=== PATIENT | female | born 1970 | race Caucasian/White ===

== ENCOUNTER 2022-02-14 12:12 | Observation (INO) | payer MEDICAID, SELFPAY ==
[2022-02-14] VITALS (61 sets, daily range): BP systolic 113–174; BP diastolic 65–99; PULSE 81–117; RESP 0–38; TEMP 36.6–36.8; O2SAT 73–98; BMI 17.9
--- NOTE | 2022-02-14 12:16 | ECG_ITS ---
[facility] Test Date: 2022-02-14 Pat Name: Kelli Lu Department: Room: Gender: Female Creative Arts Music Therapist: : 1970 Requested By: Tracey Paredes Order Number: [id number] Ronquillo MD: Jayla Swenson M.D. Measurements Intervals [place] Rate: 112 P: 81 [place]: 108 QRS: 91 QRSD: 73 T: 74 QT: 313 QTc: 429 Interpretive Statements SINUS TACHYCARDIA WITH SHORT TX INTERVAL POSSIBLE LEFT ATRIAL ENLARGEMENT [-0.1mV P-WAVE IN V1/V2] BORDERLINE RIGHT AXIS DEVIATION [QRS AXIS > 90] No previous ECG available for comparison Electronically Signed On 02-14-2022 16:19:57 CDT by Jayla Swenson M.D. [email or web address] [email or web address] Self St[email or web address].[email or web address]/store/[id number]
--- NOTE | 2022-02-14 12:20 | XR_ITS ---
WS: [id number] Exam: XR chest 1V portable [id number] Date/Time of Exam: 02/14/2022 1:01 PM Reason For Exam: chest tightness No priors. The lungs are hyperinflated and clear. Heart size top limits normal for technique. No pleural effusio ns. The mediastinal silhouette is unremarkable. Bony structures are intact. Monitoring leads superimp ose the chest. XR/XR chest 1V portable [id number] IMPRESSION: 1. Pulmonary hyperinflation which might indicate obstructive lung disease. No a cute process.
[2022-02-14 12:27] LABS: Basophils # 0.1 10^3/uL (0.0-0.1); Basophils % 0.6 %; Eosinophils # 0.1 10^3/uL (0.0-0.8); Eosinophils % 0.5 %; Hematocrit 51.2 % (37.0-47.0); Hemoglobin 16.9 g/dL (11.5-15.3); Lymphocytes # 2.3 10^3/uL (0.8-4.8); Lymphocytes % 25.1 %; Mean Corpuscular Hemoglobin 32.8 pg (28.0-34.0); Mean Corpuscular Volume 99.4 fl (81-99); Mean Platelet Volume 10.2 fL (7.4-10.4); Monocytes # 0.7 10^3/uL (0.2-0.9); Neutrophils % 66.7 %; Nucleated Red Blood Cells % 0 %; Platelet Count 232 10^3/cmm (130-400); Red Blood Count 5.15 10^6/uL (4.1-5.3); Red Cell Distribution Width 14.1 % (12.1-15.1); White Blood Count 9.3 10^3/uL (4.0-10.0)
--- NOTE | 2022-02-14 12:27 | W.ED.GENADLT ---
HPI - General Adult General: Chief complaint: Shortness of Breath/Dyspnea Stated complaint: Chest pain/SOB Time Seen by Provider: 02/14/22 12:20 History of Present Illness: Patient is a 51-year-old female with a history of COPD presenting to the emergency room for evaluation of palpitation and chest pressure. Patient tells me that she has been having on and off chest pressure for the last few weeks. In addition, patient has intermittent palpitations throughout the day. Earlier today, patient was seen and evaluated at her primary care's office. Patient had an EKG which was read by the machine as a STEMI. Patient was then told to come to the emergency room. On arrival, the EKG was reviewed did not have any reciprocal changes and does not meet criteria for STEMI. Repeat EKG did not have the abnormal machine reading. Onset: 3 days ago Duration:3 days Location:home Severity:moderate Associated symptoms: Deny chest pain, dyspnea, nausea, rash, palpitations or vomiting Review of Systems Const: Denies: fever(s) or chills Eyes: Denies: change in vision ENMT: Denies: mouth pain Card: Denies: chest pain or palpitations Resp: Denies: dyspnea or non-productive cough GI: Denies: abdominal pain, nausea, vomiting or diarrhea : Denies: dysuria Musc: Denies: extremity pain Skin/Breast: Denies: rash or new lesions Neuro: Denies: weakness in extremities Psych: Reports: other (Normal mood) Hiram/Lymph: Denies: easy bruising PFSH ED PFSH: Medical History COPD (chronic obstructive pulmonary disease) Social History Smoking and tobacco status: current every day smoker Second hand smoke exposure: Yes Lives independently: Yes Household members: spouse Physical Exam Const: COMMON NORMALS: alert HENMT: COMMON NORMALS: atraumatic HEAD & SCALP: atraumatic MOUTH: moist mucous membranes not abnormal Eye: COMMON NORMALS: EOMs intact bilaterally and conjunctivae normal CONJUNCTIVA: Yes conjunctivae normal Neck/C-Spine: COMMON NORMALS: full ROM and supple Resp: COMMON NORMALS: normal respiratory effort and clear to auscultation bilaterally AUSCULTATION: clear to auscultation bilaterally Cardio: COMMON NORMALS: regular rate RATE: regular rate GI: COMMON NORMALS: Soft to palpation and non-tender PALPATION: Yes Soft to palpation Extremity: COMMON NORMALS: full ROM Neuro: SENSORIUM/ORIENTATION: Yes alert MOTOR EXAM: No Abnormal motor strength present and Other motor observations present (no focal motor deficits) Psych: COMMON NORMALS: speech normal SPEECH: Yes normal speech MOOD & AFFECT: Yes euthymic mood Course Vital Signs: Vital signs: Vital Signs Temperature 98.0 F 02/14/22 12:16 Pulse Rate 84 02/14/22 14:34 Respiratory Rate 22 H 02/14/22 14:34 Blood Pressure 138/90 02/14/22 14:48 Pulse Oximetry 98 02/14/22 14:48 Oxygen Delivery Me thod 02/14/22 14:48 Oxygen Flow Rate 3 02/14/22 14:48 MDM - General Adult Medical Decision Making Patient is a 51-year-old female with a history of COPD presenting to the emergency room for evaluation of palpitation and chest pressure. On physical exam, patient was noted to be satting at 85 to 87% on room air. Patient requests 3 L oxygen. Patient previously did not have any oxygen requirement. No lower extremity swelling. No other focal findings on physical exam. Lungs appear to be clear. Her chest appears to be unremarkable. Dimer within normal limit. The present time, it is unclear why patient requires new oxygen. Patient is COVID-negative. Patient is rhinovirus positive. Will admit patient for observation and treatment for COPD. Patient received DuoNeb and steroids in the ED. Disposition: admission Lab Data : 02/14/22 12:22 02/14/22 13:24 Radiology Impressions Chest X-Ray 02/14/22 12:20 IMPRESSION: 1. Pulmonary hyperinflation which might indicate obstructive lung disease. No acute process. Laboratory Results WBC 9.3 10^3/uL (4.0-10.0) 02/14/22 12:22 RBC 5.15 10^6/uL (4.1-5.3) 02/14/22 12:22 Hgb 16.9 g/dL (11.5-15.3) H 02/14/22 12:22 Hct 51.2 % (37.0-47.0) H 02/14/22 12:22 MCV 99.4 fl (81-99) H 02/14/22 12: MCH 32.8 pg (28.0-34.0) 02/14/22 12: MCHC 33.0 g/dL (30.0-36.0) 02/14/22 12: RDW 14.1 % (12.1-15.1) 02/14/22 12: Plt Count 232 10^3/cmm (130-400) 02/14/22 12: MPV 10.2 fL (7.4-10.4) 02/14/22 12: Neut % (Auto) 66.7 % 02/14/22 12: Lymph % (Auto) 25.1 % 02/14/22 12: [place] % (Auto) 7.0 % 02/14/22 12: Eos % (Auto) 0.5 % 02/14/22 12: Baso % (Auto) 0.6 % 02/14/22 12: Neut # (Auto) 6.20 10^3/uL (1.8-7.7) 02/14/22 12: Lymph # (Auto) 2.3 10^3/uL (0.8-4.8) 02/14/22 12: [place] # (Auto) 0.7 10^3/uL (0.2-0.9) 02/14/22 12: Eos # (Auto) 0.1 10^3/uL (0.0-0.8) 02/14/22 12: Baso # (Auto) 0.1 10^3/uL (0.0-0.1) 02/14/22: Nucleated RBC % (auto) 0 % 02/14/22 12: Nucleated RBCs # 0.0 /100WBC 02/14/22 12:22 D-Dimer 0.31 ug/mIFEU (0-0.59) 02/14/22 12:22 Specimen Type Arterial 02/14/22 15:00 Sample Site Rad, left 02/14/22 15:00 ABG pH 7.42 (7.35-7.45) 02/14/22 15:00 ABG pCO2 50.0 mmHg (35-45) H 02/14/22 15:00 ABG pO2 47.5 mmHg (80.0-100.0) L 02/14/22 15:00 ABG HCO3 32.3 mmol/L (22-26) H 02/14/22 15:00 ABG O2 Saturation 86.9 02/14/22 15:00 ABG Base Excess 6.3 mmol/L (-2.0-2.0) H 02/14/22 15:00 Guido Test Pos 02/14/22 15:00 A-a O2 Gradient 40.8 mmHg (5-10) H 02/14/22 15:00 Hematocrit 46.5 % (37-47) 02/14/22 15:00 Hgb O2 Saturation 78.5 % (95-100) L 02/14/22 15:00 Carboxyhemoglobin 9.0 %THgb (0.4-20.1) 02/14/22 15:00 Methemoglobin 0.7 % (0.4-1.5) 02/14/22 15:00 Total Hemoglobin 15.5 g/dL (12-16) 02/14/22 15:00 Sodium 138.0 mmol/L (131-143) 02/14/22 15:00 Potassium 3.9 mmol/L (3.5-5.0) 02/14/22 15:00 Glucose 93.0 mg/dL (70-115) 02/14/22 15:00 Ionized Calcium 1.2 mmol/L (1.1-1.4) 02/14/22 15:00 O2 Delivery Device Room air 02/14/22 15:00 FiO2 21.0 % 02/14/22 15:00 Specimen Drawn By Renny 02/14/22 15:00 Software Developer ID Renny 02/14/22 15:00 Sodium 136 mmol/L (136-145) 02/14/22 13:24 Potassium 4.4 mmol/L (3.5-5.1) 02/14/22 13:24 Chloride 99 mmol/L (98-107) 02/14/22 13:24 Carbon Dioxide 29 mmol/L (22-29) 02/14/22 13:24 Anion Gap 12.4 (5-19) 02/14/22 13:24 BUN 9 mg/dL (6-20) 02/14/22 13:24 Creatinine 0.4 mg/dL (0.5-0.9) L 02/14/22 13:24 GFR Calculation 167.6 mL/min (90-130) H 02/14/22 13:24 Glucose 80 mg/dL (65-115) 02/14/22 13:24 Calculated Osmolality 280 mOsm/kg (285-295) L 02/14/22 13:24 Calcium 8.7 mg/dL (8.5-10.5) 02/14/22 13:24 Troponin T Baseline 9 ng/L (0-10) 02/14/22 12:22 Troponin T 120 Minute 9.42 ng/L (0-10) 02/14/22 14:40 Delta Troponin T 0.42 ABS# (0-10) 02/14/22 14:40 NT-Pro-B Natriuret Pep 698 pg/mL (0-125) H 02/14/22 13:24 Coronavirus 229E (PCR) Not detected (NOT DETECT) 02/14/22 12:30 Human Metapneumovir PCR Not detected (NOT DETECT) 02/14/22 14:30 Entero/Rhino (PCR) Detected (NOT DETECT) A 02/14/22 14:30 SARS-CoV-2 (PCR) Not detected (NOT DETECT) 02/14/22 12:30 Imaging Data Other Imaging: Radiologist's impression: [address] [address] XRay Report Signed Patient: Kelli Lu Unit #: [id number] : 1970 Age/Sex: 51 / F ADM Date: 02/14/22 Loc: ER Room/Bed: Attending Dr: Ordering Provider/Ordering MD: Tracey Paredes MD Date of Service: 02/14/22 Procedure(s): XR chest 1V portable [id number] Accession Number(s): [id number] Report Number: [id number] WS: [id number] Exam: XR chest 1V portable [id number] Date/Time of Exam: 02/14/2022 1:01 PM Reason For Exam: chest tightness No priors. The lungs are hyperinflated and clear. Heart size top limits normal for technique. No pleural effusions. The mediastinal silhouette is unremarkable. Bony structures are intact. Monitoring leads superimpose the chest. XR/XR chest 1V portable [id number] IMPRESSION: 1. Pulmonary hyperinflation which might indicate obstructive lung disease. No acute process. ? Dictated By: Crescencio Everett DO Signed By: Crescencio Everett DO Signed Date/Time: 02/14/221317 DD/ 16 Discharge Plan Discharge Patient Disposition: Admitted As Inpatient Clinical Impression: Palpitations, Hypoxemia, COPD exacerbation Condition: Stable Discharge Diet: Advance as tolerated Discharge Activity: Increase activity as tolerated Coding Level of Care Code ED County Program Technician for Chg Fwd Exam Comprehensive
[2022-02-14 12:41] LABS: Slide Review Slide Review Perform
[2022-02-14 13:05] LABS: D Dimer 0.31 ug/mIFEU (0-0.59)
[2022-02-14] MEDS: ipratropium-albuterol 3 mL Neb INHALATION ×2 (13:09→21:01)
[2022-02-14 13:12] LABS: Troponin(5th) Baseline 9 ng/L (0-10)
[2022-02-14 14:09] LABS: Chloride 99 mmol/L (98-107)
[2022-02-14 14:20] LABS: NT Pro B Type Natriuretic Pept 698 pg/mL (0-125)
--- NOTE | 2022-02-14 14:21 | ECG_ITS ---
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 Measurements Intervals [place] Rate: 80 P: 80 [place]: 138 QRS: 90 QRSD: 77 T: 73 QT: 384 QTc: 445 Interpretive Statements SINUS RHYTHM WITH OCCASIONAL SUPRAVENTRICULAR PREMATURE COMPLEXES Compared to ECG 02/14/2022 12:21:04 Sinus tachycardia no longer present Short [place] interval no longer present Electronically Signed On 02-14-2022 16:27:15 CDT by Jayla Swenson M.D. [id number]
[2022-02-14 14:28] LABS: Adenovirus Not Detected (NOT DETECT); Chlamydia Pneumoniae Not Detected (NOT DETECT); Coronavirus 229E,HKU1,NL63,OC4 Not Detected (NOT DETECT); Human Metapneumovirus Not Detected (NOT DETECT); Human Rhinovirus/Enterovirus Detected (NOT DETECT); Influenza A Not Detected (NOT DETECT); Influenza A H1 Not Detected (NOT DETECT); Influenza A H1-2009 Not Detected (NOT DETECT); Influenza A H3 Not Detected (NOT DETECT); Influenza B Not Detected (NOT DETECT); Mycoplasma Pneumoniae Not Detected (NOT DETECT); Parainfluenza Virus Type 1 Not Detected (NOT DETECT); Parainfluenza Virus Type 2 Not Detected (NOT DETECT); Parainfluenza Virus Type 3 Not Detected (NOT DETECT); Parainfluenza Virus Type 4 Not Detected (NOT DETECT); Respiratory Syncytial Virus A Not Detected (NOT DETECT); Respiratory Syncytial Virus B Not Detected (NOT DETECT); SARS-COV-2 Not Detected (NOT DETECT)
[2022-02-14 14:29] LABS: Blood Urea Nitrogen 9 mg/dL (6-20); Calcium 8.7 mg/dL (8.5-10.5); Carbon Dioxide 29 mmol/L (22-29); Glomerular Filtration Rate 167.6 mL/min (90-130); Glucose 80 mg/dL (65-115); Osmolality Calculated 280 mOsm/kg (285-295); Sodium 136 mmol/L (136-145)
[2022-02-14 14:30] LABS: Human Metapneumovirus Not Detected (NOT DETECT); Human Rhinovirus/Enterovirus Detected (NOT DETECT); Results from Genmark
[2022-02-14 14:30] LABS: Anion Gap 12.4 (5-19); Potassium 4.4 mmol/L (3.5-5.1)
[2022-02-14 15:17] LABS: ABG PH Result 7.42 (7.35-7.45); HCO3 ABG 32.3 mmol/L (22-26); PO2 ABG 47.5 mmHg (80.0-100.0)
[2022-02-14 15:18] LABS: Base Excess ABG 6.3 mmol/L (-2.0-2.0); Oxygen Saturation ABG 86.9
[2022-02-14 15:19] LABS: Blood Gas Operator Identificat MONRO; Potassium Level - ABG 3.9 mmol/L (3.5-5.0)
[2022-02-14 15:20] LABS: Blood Gas Allen Test POS; Oxygen Device ROOM AIR
[2022-02-14 15:20] LABS: Troponin 5 2HR 9.42 ng/L (0-10)
[2022-02-14 15:21] LABS: Blood Gas Drawn By MONRO; Blood Gas Sample Type ARTERIAL
[2022-02-14 15:21] LABS: Troponin 5 2HR Delta 0.42 ABS# (0-10)
[2022-02-14 15:22] LABS: Alveolar-Arterial Oxygen Gradi 40.8 mmHg (5-10); Arterial Blood Gas Hematocrit 46.5 % (37-47); Ionized Calcium Level - ABG 1.2 mmol/L (1.1-1.4)
[2022-02-14 15:23] LABS: HGB O2 Sat 78.5 % (95-100); Methemoglobin 0.7 % (0.4-1.5); Total Hemoglobin 15.5 g/dL (12-16)
--- NOTE | 2022-02-14 16:12 | P.HP_ITS ---
Providers/Chief Complaint Admitting Physician: Samuel Fountain Primary Care Provider: LINA Goins Chief Complaint: Chest pain/SOB History of Present Illness Pleasant 51-year-old lady with long-term history of smoking since age 18, has not been able to regularly follow with medical provider due to lack of insurance, has in the past noticed getting dyspneic with exertion, but was always able to take a break at home, but has recently started working and has been noticing dyspnea on exertion much more since she needs to keep going at work. Was assessed in primary provider's office and noted to be hypoxic, oxygen saturation down to 80s. Similarly on assessment in ER oxygen saturation 81% on room air. Not previously on nasal cannula oxygen. Noted hyperinflation, emphysema on chest x-ray. Found positive for rhinovirus, negative COVID-19. D- dimer is normal. Denies chest pain or pressure, sometimes tightness in her chest especially when she gets more short of breath. She does note having some orthopnea, mild ankle edema. NT proBNP is 698. Never had a PFT Due to new onset hypoxia observation was requested from the ER. Review of Systems Const: Denies: fever(s), chills, body aches or malaise Eyes: Denies: change in vision, eye discomfort or eye redness ENMT: Denies: throat pain, oral sores or ear or mastoid pain Card: Reports: edema, dyspnea on exertion and orthopnea; Denies: chest pain or pre-syncope Resp: Reports: dyspnea (occ chest tightness); Denies: productive cough, hemoptysis or chest congestion GI: Denies: abdominal pain, nausea, vomiting, diarrhea, constipation, hematochezia or melena : Denies: flank pain, urinary frequency or hematuria Musc: Denies: back pain, joint swelling or joint redness Skin/Breast: Denies: rash or new lesions Neuro: Denies: headache(s), numbness in extremities, weakness in extremities, dizziness, confusion or seizure-like activity Endo: Denies: polyuria or polydipsia Hiram/Lymph: Denies: easy bleeding or tender lymph nodes All/Imm: Denies: urticaria or tongue swelling Medications/Allergies Home Medications Medication Instructions Recorded Confirmed Last Taken Type albuterol sulfate 90 mcg/actuation 2 inh inhalation Q4H PRN shortness 02/14/22 Unknown Rx aerosol inhaler of breath or wheezing 5 days #6.7 grams naproxen sodium 220 mg tablet 440 mg PO Q12H PRN Pain 02/14/22 02/14/22 02/14/22 09:00 History (Aleve) 440 mg Allergies Allergy/AdvReac Type Severity Reaction Status Date / Time No Known Allergies Allergy Verified 02/14/22 12:33 PFSH Acute PFSH: Medical History Cervical cancer COPD (chronic obstructive pulmonary disease) Smoking addiction Surgical History History of conization of cervix Family History Other CAD (coronary artery disease) Diabetes Social History Smoking and tobacco status: current every day smoker Second hand smoke exposure: Yes Alcohol intake: current Alcohol intake frequency: holidays/special occasions only Substance/Drug Use: never Lives independently: Yes Household members: spouse Current occupational status: employed Current occupation: Works at jail in [employer] Vitals/I&O/Wt Last Vital Signs Temp 98.0 F 02/14/22 12:16 Pulse 97 02/14/22 15:57 Resp 15 02/14/22 15:57 BP 134/87 02/14/22 15:57 Pulse Ox 98 02/14/22 15:57 O2 Del Method 02/14/22 15:57 O2 Flow Rate 3 02/14/22 15:57 Weight last 48 hrs Weight 50.349 kg Physical Exam Narrative: at bedside Const: COMMON NORMALS: patient oriented x3 and alert GENERAL APPEARANCE: cooperative NUTRITIONAL APPEARANCE: thin ORIENTATION/CONSCIOUSNESS: Yes awake HENMT: COMMON NORMALS: oropharynx normal Neck/C-Spine: COMMON NORMALS: no JVD Resp: COMMON NORMALS: normal respiratory effort and clear to auscultation bilaterally AUSCULTATION: diminished lung sounds Cardio: COMMON NORMALS: no JVD, regular rhythm, S1 normal heart sound present, S2 normal heart sound present and No murmurs present (Cardio) RHYTHM: regular rhythm HEART SOUNDS: S1 normal heart sound present and S2 normal heart sound present GI: COMMON NORMALS: Normal to inspection, nondistended, normoactive bowel sounds present, Soft to palpation and non-tender PALPATION: Yes Soft to palpation Extremity: COMMON NORMALS: no joint enlargement GENERAL: Yes edema (Trace) Neuro: COMMON NORMALS: patient oriented x3 and moves all extremities SE NSORIUM/ORIENTATION: Yes alert Skin: COMMON NORMALS: no rashes or lesions noted GENERAL SKIN EXAM: no rashes or lesions noted Data : 02/14/22 12:22 02/14/22 13:24 A&P Assessment and plan (1) Respiratory failure with hypoxia: ABG PO2 47.5, saturation 81% on room air on presentation. Has not been previously on oxygen. Is found to have rhinovirus, although otherwise no symptoms of acute viral illness. Afebrile, no headache, muscle ache, nausea vomiting diarrhea, etc. Not coughing more than usual. Does appear to have some symptoms of CHF with orthopnea, lower extremity edema. Will assess TTE. Otherwise appears to possibly have progression of chronic lung disease with noted emphysema on chest x-ray. Smoker since age 18. D-dimer is low suggestive of low probability of PE. Due to new respiratory failure with hypoxia she is placed in observation. Oxygen support is started and likely will need oxygen to take home. Will provide breathing treatments, reassess oxygenation. Once not in acute condition would benefit from formal PFT. Status: Acute Plan Rhinovirus infection: Continue droplet isolation, supportive care. Smoking addiction: Discussed smoking cessation with her for 4 minutes, she has been trying to quit, however, has not been successful so far, but anticipates that she will quit the end. Encouraged her to continue her efforts. We will provide nicotine replacement as needed. Will need further follow-up for screeni ng chest CT with her primary provider. Attestations Medical Necessity Statement*: Place in observation for additional assessment and management of acute respiratory failure with hypoxia. Coding Level of Care Code Acute Manager Business Operations for Jennifer Mckeon Diagnoses Respiratory failure with hypoxia J96.91
--- NOTE | 2022-02-14 16:48 | USCV_ITS ---
Kelli Lu Age: 51 Gender: F : 1970 Exam Date: 02/14/2022 18:19 Ordering Phys: Samuel Fountain MD Technologist: Samuel Boland Exam Location: [facility] [place], [place] Indication: hypoxia, orthopnea, chronic. Long-term smoker, continues smoking. No history of cardiac intervention per patient. BP: 114 / 73 HR: 80 Rhythm: Sinus Technical Quality: Adequate MEASUREMENTS (Male / Female) Normal Values 2D ECHO LV Diastolic Diameter PLAX 4.6 cm 4.2 - 5.9 / 3.9 - 5.3 cm LV Systolic Diameter PLAX 3.5 cm IVS Diastolic Thickness 0.7 cm 0.6 - 1.0 / 0.6 - 0.9 cm IVS Systolic Thickness 1.6 cm LVPW Diastolic Thickness 0.9 cm 0.6 - 1.0 / 0.6 - 0.9 cm LVPW Systolic Thickness 1.5 cm LVOT Diameter 1.8 cm LV Ejection Fraction 2D Teich 42.9 % LV Ejection Fraction MOD 2C 68.5 % LV Ejection Fraction 2C AL 69.6 % LA Diameter 3.3 cm LA Width 3.2 cm LA Height 4.4 cm RA Width 4.8 cm RA Height 3.9 cm Aorta at Sinotubular Diameter 2.7 cm IVC Diameter 2.1 cm M-MODE Aortic Annulus Diameter 3.1 cm LA Ao Ratio MM 1.0 MV E Point Septal Separation 0.4 cm DOPPLER AV Peak Velocity 139.0 cm/s LVOT Peak Velocity 90.0 cm/s AV Area Cont Eq vti 1.7 cm squared AV Area Cont Eq pk 1.7 cm squared MV Area PHT 3.5 cm squared Mitral E to A Ratio 0.8 MV E' Velocity 49.0 cm/s Mitral E to MV E' Ratio 10.1 Mitral E to LV E' Lateral Ratio 10.8 Mitral E to LV E' Septal Ratio 9.4 TR Peak Velocity 310.3 cm/s TR Peak Gradient 38.5 mmHg TV Peak E Velocity 40.0 cm/s Right Atrial Pressure 5.0 mmHg Pulmonary Artery Systolic Pressu 43.5 mmHg PV Peak Velocity 109.0 cm/s RV Acceleration Time 0.1 s RV Ejection Time 0.3 s RV AcT/ET 0.3 FINDINGS Left Ventricle Normal left ventricular size, systolic function and wall thickness, with no regional wall motion abnormalities. Grade I/IV diastolic dysfunction (abnormal relaxation filling pattern), normal to mildly elevated filling pressures. Left ventricular ejection fraction is estimated at 55 %. Right Ventricle Normal right ventricular size and systolic function. Mild pulmonary hypertension, RVSP 43.5 mmHg. Right Atrium The right atrium is normal in size. There is an atrial septal aneurysm without evidence of a shunt. Left Atrium The left atrium is normal in size. Mitral Valve Structurally normal mitral valve. Trace mitral valve regurgitation. Aortic Valve Structurally normal aortic valve without significant sclerosis or stenosis. There is no aortic regurgitation. Tricuspid Valve Structurally normal tricuspid valve. Trace to mild tricuspid valve regurgitation. Pulmonic Valve Pulmonic valve not well visualized. Trace pulmonary valve regurgitation. Pericardium Normal pericardium without effusion. Aorta Normal ascending aorta dimension. IVC The inferior vena cava appears normal. CONCLUSIONS Normal left ventricular size, systolic function and wall thickness, with no regional wall motion abnormalities. Grade I/IV diastolic dysfunction (abnormal relaxation filling pattern), normal to mildly elevated filling pressures. Left ventricular ejection fraction is estimated at 55 %. Normal right ventricular size and systolic function. Mild pulmonary hypertension, RVSP 43.5 mmHg. The right atrium is normal in size. There is an atrial septal aneurysm without evidence of a shunt. Structurally normal mitral valve. Trace mitral valve regurgitation. There are no prior echocardiogram studies to compare. Dr. Raudel Turcios MD (Electronically Signed) Final Date: 15 February 2022 08:22 S
--- NOTE | 2022-02-14 17:23 | PC.NURSE ---
Patient arrived from ER via stretcher. Patient is stable and has been oriented to room and use of call baum. Spouse is present at bedside. Patient has no complaints at this time. Nurse will continue to monitor.
[2022-02-15] VITALS (9 sets, daily range): BP systolic 106–134; BP diastolic 60–72; PULSE 64–85; RESP 16–18; TEMP 36.6–36.8; O2SAT 87–98
[2022-02-15 02:33] LABS: Basophils % 0.4 %; Hematocrit 48.3 % (37.0-47.0); Hemoglobin 15.4 g/dL (11.5-15.3); Lymphocytes # 0.5 10^3/uL (0.8-4.8); Lymphocytes % 9.3 %; Mean Corpuscular HGB Conc 31.9 g/dL (30.0-36.0); Mean Corpuscular Hemoglobin 32.6 pg (28.0-34.0); Mean Corpuscular Volume 102.1 fl (81-99); Monocytes # 0.1 10^3/uL (0.2-0.9); Monocytes % 2.7 %; Neutrophils # 4.61 10^3/uL (1.8-7.7); Neutrophils % 87.4 %; Nucleated Red Blood Cells % 0 %; Platelet Count 213 10^3/cmm (130-400); Red Blood Count 4.73 10^6/uL (4.1-5.3); Red Cell Distribution Width 14.1 % (12.1-15.1); White Blood Count 5.3 10^3/uL (4.0-10.0)
[2022-02-15 02:59] LABS: Blood Urea Nitrogen 12 mg/dL (6-20); Calcium 8.9 mg/dL (8.5-10.5); Carbon Dioxide 32 mmol/L (22-29); Chloride 101 mmol/L (98-107); Glomerular Filtration Rate 129.6 mL/min (90-130); Glucose 146 mg/dL (65-115); Osmolality Calculated 288 mOsm/kg (285-295); Sodium 138 mmol/L (136-145)
[2022-02-15] MEDS: ipratropium-albuterol 3 mL Neb INHALATION ×2 (07:51→11:11)
--- NOTE | 2022-02-15 11:15 | PC.CHAP ---
Pastoral Care Encounter/Spiritual Assessment Type of Contact [x] Declined truckload checker visit [] Patient/Family/Request visit [] Outpatient visit [] Follow-up visit [] Physician referral [] Code/Alert [] Routine visit [] Staff referral [] Actively dying [] Patient sleeping [] Family support [] [] Out of room [] Palliative care [] [] Receiving care in room [] Pre-surgical visit [] Trauma [] Long length of stay [] ICU visit [] Other: Relational/Emotional Strength [] Patient feels connected with others/family/visitors/staff [] Distress [] Loneliness/isolation [] Abandonment Spirituality of Patient [] Person of Illlian [] Attends Anglican of their Lillian [] Believes in Prayer [] Reads Bible or Scientology materials [] There are Spiritual issues to be addressed Tenter Frame Back Tender Interventions [] Prayer [] Active listening [] Non-anxious presence [] Spiritual/emotional support [] Crisis/trauma care [] Spiritual counseling [] Bereavement support [] Provided bereavement packet [] Provided Bible/devotional materials [] Provided toy/stuffed animal, coloring book to patient or family member [] Provided Communion [] Anointing/[place] [] Salvation [] Completed spiritual assessment [] Other: Impact on Illness or Injury [] Angry [] Fearful [] Anxious [] Often cries [] Exhaustion [] Unable to work [] Unable to attend church [] Unable to walk/stand [] Unable to read [] Unable to drive [] Unable to eat/drink [] Unable to sleep [] Unable to be with family [] Patient intubated [] Other: Summary Declined truckload checker visit Time spent with patient 5 mins
--- NOTE | 2022-02-15 13:50 | P.DS_ITS ---
Discharge Providers Date of Admission: 02/14/22 15:25 Date of Discharge: February 15, 2022 Attending Provider at Admission: Samuel Fountain Attending Provider at Discharge: Samuel Fountain Primary Care Provider: LINA Goins Diagnoses at Discharge Discharge Diagnosis (1) Respiratory failure with hypoxia: Status: Acute Reason for Visit Reason for Visit: Chest pain/SOB Brief History: Pleasant 51-year-old lady with long-term history of smoking since age 18, has not been able to regularly follow with medical provider due to lack of insurance, has in the past noticed getting dyspneic with exertion, but was always able to take a break at home, but has recently started working and has been noticing dyspnea on exertion much more since she needs to keep going at work.? Was assessed in primary provider's office and noted to be hypoxic, oxygen saturation down to 80s.? Similarly on assessment in ER oxygen saturation 81% on room air.? Not previously on nasal cannula oxygen.? Noted hyperinflation, emphysema on chest x-ray.? Found positive for rhinovirus, negative COVID-19.? D- dimer is normal.? Denies chest pain or pressure, sometimes tightness in her chest especially when she gets more short of breath.? She does note having some orthopnea, mild ankle edema.? NT proBNP is 698. Never had a PFT Due to new onset hypoxia observation was requested from the ER. Hospital Course Hospital Course She received a dose of steroids in ER. She also received breathing treatments. Oxygenation remained good, and today actually is doing better, did not qualify for home oxygen on evaluation. She may have progression of emphysema as noted with hyperinflation on chest x-ray. With recovery from rhinovirus expected that she should improve further, however, will need formal PFT for assessment of lung function. Once she recovers from acute condition, please refer her for a formal PFT. Depending on findings consider also referral to pulmonology. Please reassess her oxygenation at follow-up office visit to reassess that oxygenation continues to improve and she does not require chronic oxygen. This also help determine her ability to return to work. Please continue to encourage and assist her with quitting smoking. Discussed with her assessment with screening CT of the chest. Physical Exam Narrative: at bedside Const: COMMON NORMALS: patient oriented x3 and alert GENERAL APPEARANCE: cooperative NUTRITIONAL APPEARANCE: thin ORIENTATION/CONSCIOUSNESS: Yes awake HENMT: COMMON NORMALS: oropharynx normal Neck/C-Spine: COMMON NORMALS: no JVD Resp: COMMON NORMALS: normal respiratory effort and clear to auscultation bilaterally AUSCULTATION: clear to auscultation bilaterally and diminished lung sounds Cardio: COMMON NORMALS: no JVD, regular rhythm, S1 normal heart sound present, S2 normal heart sound present and No murmurs present (Cardio) RHYTHM: regular rhythm HEART SOUNDS: S1 normal heart sound present and S2 normal heart sound present GI: COMMON NORMALS: Normal to inspection, nondistended, normoactive bowel sounds present, Soft to palpation and non-tender PALPATION: Yes Soft to palpation Extremity: COMMON NORMALS: no joint enlargement GENERAL: Yes edema (Trace) Neuro: COMMON NORMALS: patient oriented x3 and moves all extremities SENSORIUM/ORIENTATION: Yes alert Skin: COMMON NORMALS: no rashes or lesions noted GENERAL SKIN EXAM: no rashes or lesions noted Discharge Data Studies Completed and Pending Completed Studies During Hospitalization Category Date Time Status XR chest 1V portable [id number] Stat Exams 02/14/22 12:20 Completed CV. echo complete* [id number] Routine Ultrasound 02/14/22 16:48 Completed Pending at discharge Category Date Time Status Basic Metabolic Panel AM LABS Lab 02/16/22 04:00 Ordered Basic Metabolic Panel AM LABS Lab 02/17/22 04:00 Ordered Complete Blood Count w/Auto AM LABS Lab 02/16/22 04:00 Ordered Complete Blood Count w/Auto AM LABS Lab 02/17/22 04:00 Ordered Radiology Impressions Chest X-Ray 02/14/22 12:20 IMPRESSION: 1. Pulmonary hyperinflation which might indicate obstructive lung disease. No acute process. Laboratory Results WBC 5.3 10^3/uL (4.0-10.0) 02/15/22 01:45 RBC 4.73 10^6/uL (4.1-5.3) 02/15/22 01:45 Hgb 15.4 g/dL (11.5-15.3) H 02/15/22 01:45 Hct 48.3 % (37.0-47.0) H 02/15/22 01:45 MCV 102.1 fl (81-99) H 02/15/22 01:45 MCH 32.6 pg (28.0-34.0) 02/15/22 01:45 MCHC 31.9 g/dL (30.0-36.0) 02/15/22 01:45 RDW 14.1 % (12.1-15.1) 02/15/22 01:45 Plt Count 213 10^3/cmm (130-400) 02/15/22 01:45 MPV 11.0 fL (7.4-10.4) H 02/15/22 01:45 Neut % (Auto) 87.4 % 02/15/22 01:45 Lymph % (Auto) 9.3 % 02/15/22 01:45 [place] % (Auto) 2.7 % 02/15/22 01:45 Eos % (Auto) 0.0 % 02/15/22 01:45 Baso % (Auto) 0.4 % 02/15/22 01:45 Neut # (Auto) 4.61 10^3/uL (1.8-7.7) 02/15/22 01:45 Lymph # (Auto) 0.5 10^3/uL (0.8-4.8) L 02/15/22 01:45 [place] # (Auto) 0.1 10^3/uL (0.2-0.9) L 02/15/22 01:45 Eos # (Auto) 0.0 10^3/uL (0.0-0.8) 02/15/22 01:45 Baso # (Auto) 0.0 10^3/uL (0.0-0.1) 02/15/22 01:45 Nucleated RBC % (auto) 0 % 02/15/22 01:45 Nucleated RBCs # 0.0 /100WBC 02/15/22 01:45 D-Dimer 0.31 ug/mIFEU (0-0.59) 02/14/22 12:22 Specimen Type Arterial 02/14/22 15:00 Sample Site Rad, left 02/14/22 15:00 ABG pH 7.42 (7.35-7.45) 02/14/22 15:00 ABG pCO2 50.0 mmHg (35-45) H 02/14/22 15:00 ABG pO2 47.5 mmHg (80.0-100.0) L 02/14/22 15:00 ABG HCO3 32.3 mmol/L (22-26) H 02/14/22 15:00 ABG O2 Saturation 86.9 02/14/22 15:00 ABG Base Excess 6.3 mmol/L (-2.0-2.0) H 02/14/22 15:00 Guido Test Pos 02/14/22 15:00 A-a O2 Gradient 40.8 mmHg (5-10) H 02/14/22 15:00 Hematocrit 46.5 % (37-47) 02/14/22 15:00 Hgb O2 Saturation 78.5 % (95-100) L 02/14/22 15:00 Carboxyhemoglobin 9.0 %THgb (0.4-20.1) 02/14/22 15:00 Methemoglobin 0.7 % (0.4-1.5) 02/14/22 15:00 Total Hemoglobin 15.5 g/dL (12-16) 02/14/22 15:00 Sodium 138.0 mmol/L (131-143) 02/14/22 15:00 Potassium 3.9 mmol/L (3.5-5.0) 02/14/22 15:00 Glucose 93.0 mg/dL (70-115) 02/14/22 15:00 Ionized Calcium 1.2 mmol/L (1.1-1.4) 02/14/22 15:00 O2 Delivery Device Room air 02/14/22 15:00 FiO2 21.0 % 02/14/22 15:00 Specimen Drawn By Renny 02/14/22 15:00 Car Repair Supervisor ID Renny 02/14/22 15:00 Sodium 138 mmol/L (136-145) 02/15/22 01:45 Potassium 5.0 mmol/L (3.5-5.1) 02/15/22 01:45 Chloride 101 mmol/L (98-107) 02/15/22 01:45 Carbon Dioxide 32 mmol/L (22-29) H 02/15/22 01:45 Anion Gap 10.0 (5-19) 02/15/22 01:45 BUN 12 mg/dL (6-20) 02/15/22 01:45 Creatinine 0.5 mg/dL (0.5-0.9) 02/15/22 01:45 GFR Calculation 129.6 mL/min (90-130) 02/15/22 01:45 Glucose 146 mg/dL (65-115) H 02/15/22 01:45 Calculated Osmolality 288 mOsm/kg (285-295) 02/15/22 01:45 Calcium 8.9 mg/dL (8.5-10.5) 02/15/22 01:45 Troponin T Baseline 9 ng/L (0-10) 02/14/22 12:22 Troponin T 120 Minute 9.42 ng/L (0-10) 02/14/22 14:40 Delta Troponin T 0.42 ABS# (0-10) 02/14/22 14:40 NT-Pro-B Natriuret Pep 698 pg/mL (0-125) H 02/14/22 13:24 Coronavirus 229E (PCR) Not detected (NOT DETECT) 02/14/22 12:30 Human Metapneumovir PCR Not detected (NOT DETECT) 02/14/22 14:30 Entero/Rhino (PCR) Detected (NOT DETECT) A 02/14/22 14:30 SARS-CoV-2 (PCR) Not detected (NOT DETECT) 02/14/22 12:30 Vitals Last Vital Signs Temp 98.3 F 02/15/22 11:31 Pulse 69 02/15/22 11:31 Resp 16 02/15/22 11:31 BP 134/72 02/15/22 11:31 Pulse Ox 87 L 02/15/22 13:44 O2 Del Method 02/15/22 11:31 O2 Flow Rate 2 02/15/22 13:44 Discharge Plan Discharge Patient Disposition: Home Condition: Stable Prescriptions: New albuterol sulfate 90 mcg/actuation HFA aerosol inhaler 2 inh inhalation Q4H PRN (Reason: shortness of breath or wheezing) 5 Days Qty: 6.7 0RF nicotine 14 mg/24 hr Patch 24 Hour 1 patch transdermal DAILY PRN (Reason: Withdrawal) Qty: 30 3RF nicotine (polacrilex) 4 mg Lozenge 4 mg mucous membrane Q2H PRN (Reason: Nicotine Cravings) Qty: 90 3RF prednisone 20 mg tablet See Rx Instructions .ROUTE .COMPLEX Qty: 10 0RF Rx Instructions: 2 tab for 3 days, then 1 tab for 3 days, then 1/2 tab for 2 days. Continued Aleve 220 mg Tablet 440 mg PO Q12H PRN (Reason: Pain) Discharge Orders: Discharge Order (Routine); Ordered 02/15/22 Ordered By: Samuel Fountain Other Ambulatory Orders: DME: Oxygen (Order) Location: None Selected Ordered By: Samuel Fountain Referrals: Bea Nuñez FNP [Primary Care Provider] - 02/22/22 10:00 am Discharge Diet: Advance as tolerated Discharge Activity: Increase activity as tolerated and Return to work/school after cleared by PCP/Specialist Patient Instructions: Prednisone (By mouth), Heart Palpitations (ED), How to Stop Smoking (GEN), Cigarette Smoking and Your Health (GEN), Emphysema (GEN), COPD (Chronic Obstructive Pulmonary Disease) (GEN), Opioid Safety Activity Restrictions/Additional Instructions: Please have your primary doctor reassess your oxygen level at rest and with exertion at follow-up appointment in 4-7 days. Please also have your primary doctor refer you for pulmonary function testing once you recover from acute viral infection. Discuss with your primary doctor also referral for screening CT of the chest. Please purchase an oxygen meter (pulse oximeter) so you can monitor your oxygen level at home. Goal oxygen level 88-92%. Please stop smoking, continued smoking will lead to progression of your lung disease in addition to also risk of heart attack stroke, cancer and other complications. Please discuss with your primary doctor also finding of mild pulmonary hypertension on echocardiogram which will need follow-up Stand Alone Forms: Work/School Release Discharge Attestations Time Spent in Discharge Care*: greater than 30 min Quality Metrics Clinical Quality Measures [ No reported AMI, CVA or VTE this stay] Coding Level of Care Code Acute Chg FW DC note Diagnoses Respiratory failure with hypoxia J96.91
--- NOTE | 2022-02-15 18:03 | PC.NURSE ---
dc'd pts piv, discharge instructions given to patient and spouse. medications and oxygen delivered to bedside. Pt verbalized understanding and has no further questions. Pt left via [place] to private vehicle.
== END 2022-02-15 17:00 | disposition home or self-care (01) ==
LOC: ER 15:26 → MEDSURG 15:54
PROVIDERS: Admitting Provider Internal Medicine; Emergency Provider Emergency Medicine; PCP Nurse Practitioner Family; Visit Provider Internal Medicine
DX: J96.91 Respiratory failure, unspecified with hypoxia (principal); J44.1 Chronic obstructive pulmonary disease with (acute) exacerbation; R00.2 Palpitations; F17.200 Nicotine dependence, unspecified, uncomplicated; Z82.49 Family history of ischemic heart disease and other diseases of the circulatory system
CPT/HCPCS: 36415; 36600; 71045; 80048; 80051; 82330; 82805; 83880; 84484; 85025; 85378; 87635; 87801; 93005; 93306; 94640; 94664; 94760; 96374; 99285; G0378; J2930

== ENCOUNTER 2022-08-22 09:04 | Outpatient (CLI) | payer MEDICAID, SELFPAY ==
--- NOTE | 2022-08-22 09:30 | CT_ITS ---
WS: [id number] LDCT LUNG CANCER SCREENING TECHNIQUE: Noncontrast CT of the chest with coronal and sagittal reformatted images. CLINICAL INFORMATION: lung screenin COMPARISON: None. DLP: 80.29 mGy.cm DIvol: Mean CTDIvol: 1.60 (mGy) All CT scans at [facility] use at least one of these dose optimization techniques: automat ed exposure control; mA and/or kV adjustment per patient size (includes targeted exams where dose is matched to clinical indication); or iterative reconstruction. FINDINGS: LEFT breast prosthesis. RIGHT breast prosthesis is ruptured and decompressed. Normal caliber thoracic aorta. Aortic calcification. No mediastinal or hilar lymphadenopathy. No axillary lymphadenopathy. Adrenal glands are normal. Small esophageal hiatal hernia. Mild chronic emphysematous changes. No acute pulmonary infiltrates. No focal pneumonia or pleural flu id. Slight subsegmental atelectasis RIGHT lower lobe. Calcified granuloma RIGHT lower lobe. CT/CT lung screening [id number] IMPRESSION:RIGHT breast prosthesis is ruptured and decompressed. LUNG-RADS: 1S-Negative with Significant Findings FOLLOW UP: 12 Month: Continue annual screening with LDCT
== END 2022-08-22 09:05 | disposition home or self-care (01) ==
PROVIDERS: Visit Provider Internal Medicine Pulmonary Disease
DX: Z12.2 Encounter for screening for malignant neoplasm of respiratory organs (principal); F17.210 Nicotine dependence, cigarettes, uncomplicated
CPT/HCPCS: 71271

== ENCOUNTER 2022-09-17 09:28 | Outpatient (CLI) | payer MEDICAID, SELFPAY ==
--- NOTE | 2022-09-17 | ECG_ITS ---
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 Interpretive Statements NAME OF STUDY: LEXISCAN SESTAMIBI STRESS TEST INDICATION: [uriarte, ] Procedure: At the baseline, the blood pressure was 136/90 mmHg with a heart rate of 96 bpm. The electrocardiogram showed normal sinus rhythm, normal axis with normal ST and T's. The Lexiscan was infused over a period of 20 seconds. A total of 0.4 mg of Lexiscan was infused. The stress phase was continued for a total of 5 minutes. Heart rate was at the end of stress phase was 105 bpm and a blood pressure of 120/72mmHg. The EKG at the peak infusion revealed normal sinus rhythm with no significant ST-T wave changes. Sestamibi was injected 20 seconds after the Lexiscan infusion. Blood pressure at the end of recovery phase was 117/73 mmHg with a heart rate of 105 bpm. Conclusion: 1. Normal EKG response to Lexiscan infusion 2. No Lexiscan induced chest pain or cardiac arrhythmia. 3. Normal blood pressure and heart rate response. 4. Sestamibi/sestamibi perfusion scan pending; see separate report. Electronically Signed On 09-23-2022 14:51:58 CDT by Rolf Roberts M.D. [email or web address]
[2022-09-17 10:04] VITALS: BMI 19.3
--- NOTE | 2022-09-17 10:21 | PC.NURSE ---
pt arrived to [facility] with 3L of O2. Pt states if she is sitting and not moving around she doesnt need her oxygen. If she gets up to walk around such as [employer] she most definitely needs it. after a call to dr pace, it was agreed that pt will not tolerate an exercise mibi and switch test to a chemical stress test.
--- NOTE | 2022-09-17 10:30 | NMCV_ITS ---
NM pauline perf SPECT r/s* [id number] Kelli Lu Age: 51 Gender: F : 1970 Exam Date: 09/17/2022 11:01 Ordering Phys: Kraig Woodard MD Technologist: PILAR Larios Exam Location: [facility] Indications: CHEST PAIN, SHORTNESS OF BREATH, NICOTINE DEPENDENCE STRESS TEST Please see separate stress test report in [facility] for full findings IMAGE PROTOCOL Rest/Stress 1 Lexiscan Day Radiopharmaceutical Dose (mCi) Administration Site Administered by Rest: Tc-99m 10.6 IV PILAR Mckeon Sestamibi Stress:Tc-99m 32.9 IV PILAR Mckeon Sestamibi Rest: 17-Sep-2022 60 Discovery 630 Stress: 17-Sep-2022 30 Discovery 630 0.4mg Lexiscan. SPECT RESULTS Technical Quality: Excellent Raw Data Analysis: Normal Image Corrections: No attenuation or motion correction applied Summed Stress Score: 0 Summed Rest Score: 0 Summed Difference Score: 0 PERFUSION FINDINGS SPECT images demonstrate homogeneous tracer distribution throughout the myocardium. FUNCTIONAL RESULTS (calculated via Gated SPECT) Stress Image LV EF (%): 58 Stress EDV (mL):100 TID: 1.06 Stress ESV (mL):42 FUNCTIONAL FINDINGS: There is normal left ventricular systolic function. IMPRESSIONS 1. Normal myocardial perfusion imaging with no evidence of ischemia 2. LV systolic function is normal. Rolf Roberts MD (Electronically Signed) Final Date: 22 September 2022 11:12 S
[2022-09-17 11:46] VITALS: BP 117/73; PULSE 102
[2022-09-17] MEDS: regadenoson 0.4 Mg/5 ml Syringe IVP (11:47)
== END 2022-09-17 09:29 | disposition home or self-care (01) ==
LOC: CDL 09:29
PROVIDERS: Visit Provider Internal Medicine Pulmonary Disease
DX: R06.00 Dyspnea, unspecified (principal); F17.210 Nicotine dependence, cigarettes, uncomplicated; R07.9 Chest pain, unspecified
CPT/HCPCS: 36415; 78452; 93017; 96374; A9500; J2785

== ENCOUNTER 2022-12-20 07:18 | Outpatient (CLI) | payer MEDICAID, SELFPAY ==
--- NOTE | 2022-12-20 07:45 | USR_ITS ---
PROCEDURE INFORMATION: Exam: US Duplex Bilateral Lower Extremity Arteries Exam date and time: 12/20/2022 7:47 AM Age: 52 years old Clinical indication: Pain; Leg, lower; Bilateral; Additional info: Ble pain TECHNIQUE: Imaging protocol: Real-time ultrasound scan of the arteries of the bilateral lower extremities with 2-D simmons scale, color Doppler flow and spectral waveform analysis. Images documented and saved. COMPARISON: No relevant prior studies available. FINDINGS: Right common femoral artery: No occlusion or significant stenosis. Normal waveform. Right superficial femoral artery: No occlusion or significant stenosis. Normal waveform. Right popliteal artery: No occlusion or significant stenosis. Normal waveform. Right calf/foot arteries: No occlusion or significant stenosis in the visualized arteries. Normal waveforms. Dorsalis pedis artery is patent. Left common femoral artery: No occlusion or significant stenosis. Normal waveform. Left superficial femoral artery: No occlusion or significant stenosis. Normal waveform. Left popliteal artery: No occlusion or significant stenosis. Normal waveform. Left calf/foot arteries: No occlusion or significant stenosis in the visualized arteries. Normal waveforms. Dorsalis pedis artery is patent. US/CV arterial duplex [facility] [id number] IMPRESSION: No stenosis or occlusion.
== END 2022-12-20 07:19 | disposition home or self-care (01) ==
LOC: RAD 07:20
PROVIDERS: Visit Provider Internal Medicine Pulmonary Disease
DX: M79.604 Pain in right leg (principal); M79.605 Pain in left leg
CPT/HCPCS: 93925